=== PATIENT | male | born 1950 | race African-American/Black ===

== ENCOUNTER 2021-03-12 14:35 | Inpatient (IN) | payer MEDICARE, MEDICAID, OTHER ==
[~2021-03-12] VITALS: Ht 185.4 cm; Wt 74.4 kg
[2021-03-12] MEDS ORDERED: FOLIC ACID 1 MG, THIAMINE HCL 100 MG, MVI, ADULT NO.1 10 ML in DEXTROSE 5% WATER 1,000 ML IV ONE (15:00)
[2021-03-12] MEDS ORDERED: CHLORDIAZEPOXIDE 25MG CAPSULE PO ONE (15:00)
[2021-03-12] MEDS ORDERED: CHLORDIAZEPOXIDE 10MG CAPSULE PO NR (15:30)
[2021-03-12 15:48] LABS: BASOPHILS % 0.6 % (0.0-2.0); EOSINOPHILS % 0.8 % (0.0-5.0); HEMATOCRIT. 35.8 % (42.0-52.0); HEMOGLOBIN. 12.2 g/dL (14.0-18.0); LYMPHOCYTES % 11.7 % (20.0-50.0); MEAN CORPUSCULAR HEMOGLOBIN 33.1 pg (28.0-32.0); MEAN CORPUSCULAR VOLUME 96.6 fL (80.0-94.0); MEAN PLATELET VOLUME 8.1 fl (7.4-10.4); MONOCYTES % 6.8 % (2.0-8.0); NEUTROPHILS % 80.1 % (40.0-76.0); PLATELET 243 x1000/uL (130-400); RED CELL DISTRIBUTION WIDTH 15.3 % (11.6-14.6)
[2021-03-12 15:54] LABS: CHLORIDE 101 mEq/L (98-107); PROTHROMBIN TIME 10.7 sec (9.6-11.0)
[2021-03-12 15:57] LABS: ETHANOL BLOOD < 10 mg/dL
[2021-03-12] MEDS ORDERED: POTASSIUM CHLORIDE 20MEQ TABLET SR PO ONE (17:30)
[2021-03-12] MEDS ORDERED: AMLODIPINE 2.5MG TABLET PO ONE (18:00)
[2021-03-12] MEDS: HYDRALAZINE 20MG/ML VIAL IV PRN (20:29)
[2021-03-12 21:25] LABS: CLARITY URINE CLEAR (CLEAR); COLOR URINE DARK YELLOW (YELLOW); KETONES URINE 2+ (NEGATIVE); LEUKOCYTE ESTERASE URINE TRACE (NEGATIVE); NITRITE URINE NEGATIVE (NEGATIVE); OCCULT BLOOD URINE NEGATIVE (NEGATIVE); PROTEIN URINE 1+ (NEGATIVE); SPECIFIC GRAVITY URINE 1.021 (1.005-1.030)
[2021-03-12 21:30] VITALS: BP 151/97
[2021-03-12 21:34] LABS: *AMPHETAMINES SCREEN URINE NEGATIVE (NEGATIVE); *BARBITURATES SCREEN URINE NEGATIVE (NEGATIVE); *BENZODIAZEPINES SCREEN URINE NEGATIVE (NEGATIVE); *COCAINE SCREEN URINE NEGATIVE (NEGATIVE); METHADONE URINE SCREEN NEGATIVE (NEGATIVE); OPIATES URINE SCREEN NEGATIVE (NEGATIVE); PHENCYCLIDINE URINE SCREEN NEGATIVE (NEGATIVE)
[2021-03-12 21:35] LABS: CANNABINOID URINE SCREEN NEGATIVE (NEGATIVE)
[2021-03-13] VITALS: BP 132/95
[2021-03-13] MEDS ORDERED: LORAZEPAM 2MG/ML CPJ IV PRN (00:15)
[2021-03-13] MEDS ORDERED: ONDANSETRON HCL 4MG/2ML INJ IV PRN (00:15)
[2021-03-13] MEDS ORDERED: DIPHENHYDRAMINE 50MG/ML VIAL IV PRN (00:15)
[2021-03-13] MEDS: SODIUM CHL 0.45% + KCL 20MEQ/L 1,000 ML IV SCH ×3 (03:07→21:43)
[2021-03-13 05:42] LABS: BASOPHILS % 0.3 % (0.0-2.0); EOSINOPHILS % 2.4 % (0.0-5.0); HEMATOCRIT. 32.4 % (42.0-52.0); HEMOGLOBIN. 10.8 g/dL (14.0-18.0); LYMPHOCYTES % 26.8 % (20.0-50.0); MEAN CORPUSCULAR HEMOGLOBIN 32.4 pg (28.0-32.0); MEAN CORPUSCULAR VOLUME 97.2 fL (80.0-94.0); MEAN PLATELET VOLUME 7.9 fl (7.4-10.4); MONOCYTES % 8.2 % (2.0-8.0); NEUTROPHILS % 62.3 % (40.0-76.0); PLATELET 197 x1000/uL (130-400); RED BLOOD CELL COUNT 3.34 mill/uL (4.7-6.1); RED CELL DISTRIBUTION WIDTH 14.8 % (11.6-14.6)
[2021-03-13 06:00] LABS: CHLORIDE 101 mEq/L (98-107)
[2021-03-13] MEDS ORDERED: CHLORDIAZEPOXIDE 25MG CAPSULE PO SCH (06:00)
[2021-03-13 06:27] VITALS: BP 151/100
[2021-03-13 08:00] VITALS: BP 170/108
[2021-03-13] MEDS: HYDRALAZINE 20MG/ML VIAL IV PRN (08:47)
[2021-03-13] MEDS: POTASSIUM CHLORIDE 20MEQ TABLET SR PO SCH ×3 (11:43→15:00)
[2021-03-13] MEDS: CLONIDINE 0.1MG TABLET PO PRN (11:45)
[2021-03-13 12:00] VITALS: BP 175/106
[2021-03-13] MEDS ORDERED: MAGNESIUM 4 G PREMIX 100 ML IV NR (12:00)
[2021-03-13] MEDS ORDERED: PNEUMOCOCCAL 23-VAL P-SAC VAC 0.5 ML IM ONE (12:00)
[2021-03-13] MEDS ORDERED: CHLORDIAZEPOXIDE 10MG CAPSULE PO SCH (14:19)
[2021-03-13] MEDS: CHLORDIAZEPOXIDE 10MG CAPSULE PO SCH ×2 (14:27→21:44)
[2021-03-13 16:00] VITALS: BP 126/87
[2021-03-13 20:00] VITALS: BP 161/108
[2021-03-13] MEDS: AMLODIPINE 5MG TABLET PO SCH (21:43)
[2021-03-14] VITALS (7 sets, daily range): BP systolic 142–170; BP diastolic 96–110
[2021-03-14 06:10] LABS: CHLORIDE 105 mEq/L (98-107)
[2021-03-14] MEDS: SODIUM CHL 0.45% + KCL 20MEQ/L 1,000 ML IV SCH ×3 (06:10→20:36)
[2021-03-14] MEDS: CHLORDIAZEPOXIDE 10MG CAPSULE PO SCH (06:10)
[2021-03-14 06:22] LABS: PHOSPHORUS 1.6 mg/dL (2.5-4.9)
[2021-03-14] MEDS: AMLODIPINE 5MG TABLET PO SCH ×2 (09:21→21:09)
[2021-03-14] MEDS ORDERED: POTASSIUM PHOS,M-BASIC-D-BASIC 20 MMOL in DEXT 5% WATER 243.3333 ML IV SCH (10:00)
[2021-03-14] MEDS: CLONIDINE 0.1MG TABLET PO PRN (15:20)
[2021-03-14] MEDS: LOSARTAN POTASSIUM 50 MG TABLET PO SCH ×2 (15:20→21:10)
[2021-03-14] MEDS: CHLORDIAZEPOXIDE 5 MG CAPSULE PO SCH ×2 (15:21→21:09)
[2021-03-14] MEDS ORDERED: CLONIDINE 0.1MG TABLET PO PRN (21:00)
[2021-03-14] MEDS: HYDRALAZINE 20MG/ML VIAL IV PRN (21:11)
[2021-03-15] VITALS: BP 127/93
[2021-03-15 04:00] VITALS: BP 148/105
[2021-03-15 05:51] LABS: CHLORIDE 110 mEq/L (98-107)
[2021-03-15 05:56] LABS: PHOSPHORUS 2.6 mg/dL (2.5-4.9)
[2021-03-15] MEDS: CHLORDIAZEPOXIDE 5 MG CAPSULE PO SCH ×4 (06:00→20:49)
[2021-03-15 08:00] VITALS: BP 116/114
[2021-03-15] MEDS: AMLODIPINE 5MG TABLET PO SCH ×2 (09:11→20:48)
[2021-03-15] MEDS: LOSARTAN POTASSIUM 50 MG TABLET PO SCH ×2 (09:11→20:48)
[2021-03-15] MEDS: SODIUM CHL 0.45% + KCL 20MEQ/L 1,000 ML IV SCH ×2 (09:12→23:56)
[2021-03-15 12:00] VITALS: BP 169/97
[2021-03-15] MEDS ORDERED: MAGNESIUM 4 G PREMIX 100 ML IV NR (12:30)
[2021-03-15] MEDS: HYDRALAZINE 20MG/ML VIAL IV PRN (12:34)
[2021-03-15 16:00] VITALS: BP 130/80
[2021-03-15 20:00] VITALS: BP 149/96
[2021-03-16] VITALS: BP 154/101
[2021-03-16 04:00] VITALS: BP 161/102
[2021-03-16] MEDS: HYDRALAZINE 20MG/ML VIAL IV PRN (05:49)
[2021-03-16 08:05] VITALS: BP 128/88
[2021-03-16] MEDS: LOSARTAN POTASSIUM 50 MG TABLET PO SCH (09:00)
[2021-03-16] MEDS: AMLODIPINE 5MG TABLET PO SCH (09:00)
[2021-03-16] MEDS: DEXT 5%/0.45% NACL KCL 20MEQ/L 1,000 ML IV SCH ×2 (11:33→21:37)
[2021-03-16 12:16] VITALS: BP 155/105
[2021-03-16 16:12] VITALS: BP 141/100
[2021-03-16 18:12] LABS: T4 FREE 1.14 ng/dL (0.76-1.46)
[2021-03-16 18:33] LABS: VITAMIN B12 SERUM 1003 pg/mL (211-911)
[2021-03-16 20:00] VITALS: BP 144/103
[2021-03-16] MEDS ORDERED: THIAMINE HCL 100 MG in SODIUM CHLORIDE 0.9% 49 ML IV NR (23:30)
[2021-03-17] VITALS: BP 144/91
[2021-03-17 04:00] VITALS: BP 163/97
[2021-03-17 08:00] VITALS: BP 133/78
[2021-03-17 08:13] LABS: CREATINE KINASE 58 IU/L (39-308)
[2021-03-17] MEDS: DEXT 5%/0.45% NACL KCL 20MEQ/L 1,000 ML IV SCH (11:13)
[2021-03-17 12:00] VITALS: BP 155/99
[2021-03-17 16:00] VITALS: BP 157/101
[2021-03-17 20:00] VITALS: BP 156/104
[2021-03-18] VITALS: BP 174/107
[2021-03-18] MEDS: HYDRALAZINE 20MG/ML VIAL IV PRN (00:21)
[2021-03-18] MEDS: DEXT 5%/0.45% NACL KCL 20MEQ/L 1,000 ML IV SCH ×2 (03:05→13:28)
[2021-03-18 04:00] VITALS: BP 108/77
[2021-03-18 07:56] VITALS: BP 141/98
[2021-03-18] MEDS: THIAMINE HCL 100MG TABLET PO SCH (10:01)
[2021-03-18 11:39] VITALS: BP 135/95
[2021-03-18 15:46] VITALS: BP 120/78
[2021-03-18 20:00] VITALS: BP 129/90
[2021-03-19] VITALS: BP 144/91
[2021-03-19 04:00] VITALS: BP 165/108
[2021-03-19] MEDS: HYDRALAZINE 20MG/ML VIAL IV PRN ×2 (04:38→20:11)
[2021-03-19 08:06] VITALS: BP 153/95
[2021-03-19] MEDS: THIAMINE HCL 100MG TABLET PO SCH (09:00)
[2021-03-19] MEDS: DEXT 5%/0.45% NACL KCL 20MEQ/L 1,000 ML IV SCH ×2 (09:20→20:10)
[2021-03-19] MEDS ORDERED: LORAZEPAM 2MG/ML CPJ IV PRN (10:30)
[2021-03-19 12:12] VITALS: BP 137/96
[2021-03-19 15:48] VITALS: BP 146/87
[2021-03-19 20:00] VITALS: BP 166/105
[2021-03-20] VITALS: BP 129/90
[2021-03-20 04:00] VITALS: BP 147/85
[2021-03-20] MEDS: DEXT 5%/0.45% NACL KCL 20MEQ/L 1,000 ML IV SCH ×2 (04:36→14:44)
[2021-03-20 08:00] VITALS: BP 150/100
[2021-03-20] MEDS: THIAMINE HCL 100MG TABLET PO SCH (09:00)
[2021-03-20 11:14] LABS: BASOPHILS % 0.4 % (0.0-2.0); EOSINOPHILS % 1.2 % (0.0-5.0); HEMATOCRIT. 32.8 % (42.0-52.0); HEMOGLOBIN. 10.8 g/dL (14.0-18.0); LYMPHOCYTES % 9.1 % (20.0-50.0); MEAN CORPUSCULAR VOLUME 96.8 fL (80.0-94.0); MEAN PLATELET VOLUME 7.2 fl (7.4-10.4); MONOCYTES % 3.8 % (2.0-8.0); NEUTROPHILS % 85.5 % (40.0-76.0); PLATELET 279 x1000/uL (130-400); RED BLOOD CELL COUNT 3.38 mill/uL (4.7-6.1); RED CELL DISTRIBUTION WIDTH 14.9 % (11.6-14.6)
[2021-03-20 11:20] LABS: INR 1.2; PROTHROMBIN TIME 12.4 sec (9.6-11.0)
[2021-03-20 11:22] LABS: CHLORIDE 114 mEq/L (98-107)
[2021-03-20 11:28] LABS: PHOSPHORUS 3.2 mg/dL (2.5-4.9)
[2021-03-20 12:00] VITALS: BP 150/100
[2021-03-20 16:00] VITALS: BP 137/95
[2021-03-20 20:43] VITALS: BP 137/88
[2021-03-21 00:28] VITALS: BP 142/80
[2021-03-21] MEDS: IPRATROPIUM/ALBUTEROL 0.5-3(2.5)MG/3ML NEB HHN SCH ×4 (01:15→21:51)
[2021-03-21 04:00] VITALS: BP 166/99
[2021-03-21] MEDS: HYDRALAZINE 20MG/ML VIAL IV PRN (04:21)
[2021-03-21] MEDS: DEXT 5%/0.45% NACL KCL 20MEQ/L 1,000 ML IV SCH ×3 (06:49→15:49)
[2021-03-21 08:00] VITALS: BP 133/75
[2021-03-21] MEDS: THIAMINE HCL 100MG TABLET PO SCH (08:55)
[2021-03-21] MEDS ORDERED: FUROSEMIDE 40MG/4ML VIAL IVP NR (11:15)
[2021-03-21 12:00] VITALS: BP 130/90
[2021-03-21 16:00] VITALS: BP 129/82
[2021-03-21 20:33] VITALS: BP 135/72
[2021-03-22] VITALS (7 sets, daily range): BP systolic 99–154; BP diastolic 66–95
[2021-03-22] MEDS: IPRATROPIUM/ALBUTEROL 0.5-3(2.5)MG/3ML NEB HHN SCH ×4 (01:04→20:37)
[2021-03-22] MEDS: THIAMINE HCL 100MG TABLET PO SCH (09:00)
[2021-03-22 13:38] LABS: INR 1.2; PARTIAL THROMBOPLASTIN TIME 42.4 sec (23.4-31.0); PROTHROMBIN TIME 12.9 sec (9.6-11.0)
[2021-03-22 13:43] LABS: CHLORIDE 110 mEq/L (98-107)
[2021-03-22] MEDS: DEXT 5%/0.45% NACL KCL 20MEQ/L 1,000 ML IV SCH (13:43)
[2021-03-22] MEDS ORDERED: CYAN50003 PO (15:53)
[2021-03-22] MEDS ORDERED: AMLO5TAB4 PO (15:53)
[2021-03-22] MEDS ORDERED: DIVA500T3 PO ×2 (15:53)
[2021-03-22] MEDS ORDERED: ASPI-1079 PO (15:53)
[2021-03-22] MEDS ORDERED: CLOP75TA4 PO (15:53)
[2021-03-22] MEDS ORDERED: QUET300T19 PO (15:53)
[2021-03-22] MEDS ORDERED: LEVO75TA7 PO (15:53)
[2021-03-22] MEDS ORDERED: ATOR40TA70 PO (15:53)
[2021-03-23] VITALS (62 sets, daily range): BP systolic 61–147; BP diastolic 35–104
[2021-03-23] MEDS: IPRATROPIUM/ALBUTEROL 0.5-3(2.5)MG/3ML NEB HHN SCH ×3 (02:08→20:22)
[2021-03-23 06:26] LABS: CHLORIDE 109 mEq/L (98-107)
[2021-03-23 06:47] LABS: BASOPHILS % 0.2 % (0.0-2.0); EOSINOPHILS % 0.3 % (0.0-5.0); HEMATOCRIT. 35.4 % (42.0-52.0); LYMPHOCYTES % 8.7 % (20.0-50.0); MEAN CORPUSCULAR HEMOGLOBIN 30.8 pg (28.0-32.0); MEAN CORPUSCULAR VOLUME 99.4 fL (80.0-94.0); MEAN PLATELET VOLUME 7.6 fl (7.4-10.4); MONOCYTES % 2.7 % (2.0-8.0); NEUTROPHILS % 88.1 % (40.0-76.0); PLATELET 261 x1000/uL (130-400); RED BLOOD CELL COUNT 3.57 mill/uL (4.7-6.1); RED CELL DISTRIBUTION WIDTH 15.8 % (11.6-14.6)
[2021-03-23 06:48] LABS: PHOSPHORUS 8.6 mg/dL (2.5-4.9)
[2021-03-23] MEDS ORDERED: VECURONIUM BROMIDE 10 MG/VIAL IV ONE (07:38)
[2021-03-23] MEDS ORDERED: PHENYLEPHRINE 100 MG in DEXT 5% WATER 240 ML IV PRN (08:30)
[2021-03-23] MEDS: NOREPINEPHRINE 8 MG in DEXT 5% WATER 242 ML IV PRN ×2 (08:30→14:02)
[2021-03-23] MEDS ORDERED: FENTANYL CITRATE/PF 2,500 MCG in SODIUM CHLORIDE 0.9% 200 ML IV PRN (08:30)
[2021-03-23 09:17] LABS: BG BASE EXCESS -10.6 mmol/L (-2.0-2.0); BG CARBOXYHEMOGLOBIN 0.3 % (0.5-1.5); BG DEOXYHEMOGLOBIN 0.5 % (0.0-5.0); BG FRACTION INSPIRED OXYGEN 100; BG HCO3 ACT 18.4 mmol/L (22.0-26.0); BG METHEMOGLOBIN 0.5 % (0.0-1.5); BG OXYGEN SATURATION 99.5 % (92.0-98.5); BG OXYHEMOGLOBIN 98.7 % (94.0-97.0); BG PCO2 55.1 mmHg (35.0-45.0); BG PH 7.141 (7.350-7.450); BG PO2 282.1 mmHg (75.0-100.0); BG SAMPLE SITE LEFT RADIAL; BG TOTAL HEMOGLOBIN 10.9 g/dL (12.0-18.0); BG VENT MODE VENT - AC
[2021-03-23] MEDS ORDERED: SODIUM BICARBONATE 8.4% 1 MEQ/ML 50ML SYR IV NR (09:30)
[2021-03-23] MEDS ORDERED: MAGNESIUM 2 G PREMIX 50 ML IV ONE (10:00)
[2021-03-23] MEDS: THIAMINE HCL 100MG TABLET PO SCH (10:23)
[2021-03-23] MEDS: PIPERACILLIN/TAZOBACTAM 3.375 G in DEXTROSE 5% WATER 50 ML IV SCH ×3 (10:23→21:31)
[2021-03-23] MEDS ORDERED: VANCOMYCIN 1250MG in DEXTROSE 5% WATER 250ML IV NR (11:00)
[2021-03-23] MEDS ORDERED: MAGNESIUM 2 G PREMIX 50 ML IV NR (12:00)
[2021-03-23] MEDS: ACETYLCYSTEINE 100MG/ML 10% VIAL 4ML INH SCH (13:53)
[2021-03-23] MEDS ORDERED: IOHEXOL-300 100 ML BOTTLE ONE (14:48)
[2021-03-23 15:36] LABS: BG BASE EXCESS -8.6 mmol/L (-2.0-2.0); BG CARBOXYHEMOGLOBIN 0.3 % (0.5-1.5); BG DEOXYHEMOGLOBIN 3.3 % (0.0-5.0); BG FRACTION INSPIRED OXYGEN 70; BG HCO3 ACT 15.8 mmol/L (22.0-26.0); BG METHEMOGLOBIN 0.3 % (0.0-1.5); BG OXYGEN SATURATION 96.7 % (92.0-98.5); BG OXYHEMOGLOBIN 96.1 % (94.0-97.0); BG PCO2 29.5 mmHg (35.0-45.0); BG PH 7.348 (7.350-7.450); BG PO2 85.3 mmHg (75.0-100.0); BG SAMPLE SITE RIGHT BRACHIAL; BG TOTAL HEMOGLOBIN 11.6 g/dL (12.0-18.0); BG VENT MODE VENT - AC
[2021-03-23] MEDS: DEXT 5%/0.45% NACL KCL 20MEQ/L 1,000 ML IV SCH (19:22)
[2021-03-23] MEDS ORDERED: NOREPINEPHRINE 32 MG in DEXT 5% WATER 218 ML IV PRN (20:15)
[2021-03-23] MEDS: VANCOMYCIN 1 G PREMIX 200 ML IV SCH (21:26)
[2021-03-24] VITALS (84 sets, daily range): BP systolic 78–154; BP diastolic 29–116
[2021-03-24] MEDS: IPRATROPIUM/ALBUTEROL 0.5-3(2.5)MG/3ML NEB HHN SCH ×4 (02:08→20:32)
[2021-03-24] MEDS: PIPERACILLIN/TAZOBACTAM 3.375 G in DEXTROSE 5% WATER 50 ML IV SCH ×2 (04:27→09:14)
[2021-03-24 06:01] LABS: CHLORIDE 104 mEq/L (98-107)
[2021-03-24 06:03] LABS: HEMATOCRIT. 32.5 % (42.0-52.0); HEMOGLOBIN. 10.5 g/dL (14.0-18.0); MEAN CORPUSCULAR HEMOGLOBIN 30.5 pg (28.0-32.0); MEAN CORPUSCULAR VOLUME 94.9 fL (80.0-94.0); MEAN PLATELET VOLUME 7.7 fl (7.4-10.4); PLATELET 159 x1000/uL (130-400); RED BLOOD CELL COUNT 3.43 mill/uL (4.7-6.1); RED CELL DISTRIBUTION WIDTH 15.5 % (11.6-14.6)
[2021-03-24 06:12] LABS: PHOSPHORUS 4.3 mg/dL (2.5-4.9)
[2021-03-24] MEDS: ACETYLCYSTEINE 100MG/ML 10% VIAL 4ML INH SCH (07:54)
[2021-03-24 08:48] LABS: BG BASE EXCESS -3.2 mmol/L (-2.0-2.0); BG CARBOXYHEMOGLOBIN 0.2 % (0.5-1.5); BG DEOXYHEMOGLOBIN 1.1 % (0.0-5.0); BG FRACTION INSPIRED OXYGEN 70; BG HCO3 ACT 19.1 mmol/L (22.0-26.0); BG METHEMOGLOBIN 0.2 % (0.0-1.5); BG OXYGEN SATURATION 98.9 % (92.0-98.5); BG OXYHEMOGLOBIN 98.5 % (94.0-97.0); BG PCO2 26.1 mmHg (35.0-45.0); BG PH 7.482 (7.350-7.450); BG PO2 163.1 mmHg (75.0-100.0); BG SAMPLE SITE LEFT RADIAL; BG TOTAL HEMOGLOBIN 10.9 g/dL (12.0-18.0); BG VENT MODE VENT - AC
[2021-03-24] MEDS: THIAMINE HCL 100MG TABLET PO SCH (09:23)
[2021-03-24] MEDS: DEXT 5%/0.9% NACL 1,000 ML IV SCH (09:23)
[2021-03-24] MEDS: VANCOMYCIN 1 G PREMIX 200 ML IV SCH (09:23)
[2021-03-24] MEDS ORDERED: MAGNESIUM 2 G PREMIX 50 ML IV SCH (11:00)
[2021-03-24 11:59] LABS: PLATELET ESTIMATE NORMAL
[2021-03-24] MEDS: CEFEPIME 1,000 MG in DEXTROSE 5% WATER 50 ML IV SCH (16:02)
[2021-03-24] MEDS: METRONIDAZOLE 500MG TABLET PO SCH (20:15)
[2021-03-25] VITALS (45 sets, daily range): BP systolic 108–146; BP diastolic 68–100
[2021-03-25] MEDS: IPRATROPIUM/ALBUTEROL 0.5-3(2.5)MG/3ML NEB HHN SCH ×3 (02:00→20:18)
[2021-03-25] MEDS: CEFEPIME 1,000 MG in DEXTROSE 5% WATER 50 ML IV SCH ×2 (04:15→15:17)
[2021-03-25] MEDS: DEXT 5%/0.9% NACL 1,000 ML IV SCH (04:15)
[2021-03-25 05:36] LABS: BASOPHILS % 0.3 % (0.0-2.0); EOSINOPHILS % 0.1 % (0.0-5.0); HEMATOCRIT. 27.6 % (42.0-52.0); LYMPHOCYTES % 7.6 % (20.0-50.0); MEAN CORPUSCULAR HEMOGLOBIN 30.7 pg (28.0-32.0); MEAN CORPUSCULAR VOLUME 94.4 fL (80.0-94.0); MEAN PLATELET VOLUME 7.5 fl (7.4-10.4); MONOCYTES % 2.7 % (2.0-8.0); NEUTROPHILS % 89.3 % (40.0-76.0); PLATELET 100 x1000/uL (130-400); RED BLOOD CELL COUNT 2.93 mill/uL (4.7-6.1); RED CELL DISTRIBUTION WIDTH 15.1 % (11.6-14.6)
[2021-03-25 05:42] LABS: CHLORIDE 108 mEq/L (98-107)
[2021-03-25 05:48] LABS: PHOSPHORUS 5.2 mg/dL (2.5-4.9)
[2021-03-25] MEDS: ACETYLCYSTEINE 100MG/ML 10% VIAL 4ML INH SCH ×2 (08:54→20:18)
[2021-03-25] MEDS: METRONIDAZOLE 500MG TABLET PO SCH ×2 (08:58→20:31)
[2021-03-25] MEDS: THIAMINE HCL 100MG TABLET PO SCH (08:58)
[2021-03-25 09:21] LABS: BG BASE EXCESS -4.5 mmol/L (-2.0-2.0); BG CARBOXYHEMOGLOBIN 0.3 % (0.5-1.5); BG DEOXYHEMOGLOBIN 1.3 % (0.0-5.0); BG FRACTION INSPIRED OXYGEN 50; BG HCO3 ACT 18.8 mmol/L (22.0-26.0); BG METHEMOGLOBIN 0.2 % (0.0-1.5); BG OXYGEN SATURATION 98.7 % (92.0-98.5); BG OXYHEMOGLOBIN 98.2 % (94.0-97.0); BG PCO2 28.8 mmHg (35.0-45.0); BG PH 7.433 (7.350-7.450); BG SAMPLE SITE RIGHT RADIAL; BG TOTAL HEMOGLOBIN 9.9 g/dL (12.0-18.0); BG VENT MODE VENT - AC
[2021-03-25] MEDS: ENOXAPARIN 40MG/0.4ML SYR SUBCUT SCH ×2 (11:00→11:11)
[2021-03-25] MEDS: SODIUM CHLORIDE 0.9% 1,000 ML IV SCH (11:11)
[2021-03-25] MEDS ORDERED: VANCOMYCIN 500 MG PREMIX 100 ML IV SCH (21:00)
[2021-03-26] VITALS (46 sets, daily range): BP systolic 129–165; BP diastolic 78–122
[2021-03-26] MEDS: IPRATROPIUM/ALBUTEROL 0.5-3(2.5)MG/3ML NEB HHN SCH ×4 (01:43→20:04)
[2021-03-26 05:24] LABS: BASOPHILS % 0.4 % (0.0-2.0); EOSINOPHILS % 0.6 % (0.0-5.0); HEMATOCRIT. 27.4 % (42.0-52.0); LYMPHOCYTES % 10.6 % (20.0-50.0); MEAN CORPUSCULAR HEMOGLOBIN 30.7 pg (28.0-32.0); MEAN CORPUSCULAR VOLUME 93.8 fL (80.0-94.0); MEAN PLATELET VOLUME 7.3 fl (7.4-10.4); MONOCYTES % 3.5 % (2.0-8.0); NEUTROPHILS % 84.9 % (40.0-76.0); PLATELET 82 x1000/uL (130-400); RED BLOOD CELL COUNT 2.92 mill/uL (4.7-6.1); RED CELL DISTRIBUTION WIDTH 15.4 % (11.6-14.6)
[2021-03-26 05:27] LABS: CHLORIDE 110 mEq/L (98-107)
[2021-03-26 05:33] LABS: PHOSPHORUS 5.2 mg/dL (2.5-4.9)
[2021-03-26] MEDS: CEFEPIME 1,000 MG in DEXTROSE 5% WATER 50 ML IV SCH ×2 (05:52→15:07)
[2021-03-26] MEDS: SODIUM CHLORIDE 0.9% 1,000 ML IV SCH (07:39)
[2021-03-26] MEDS: ACETYLCYSTEINE 100MG/ML 10% VIAL 4ML INH SCH ×2 (08:39→20:04)
[2021-03-26] MEDS: ENOXAPARIN 40MG/0.4ML SYR SUBCUT SCH (09:00)
[2021-03-26 09:05] LABS: BG BASE EXCESS -3.1 mmol/L (-2.0-2.0); BG CARBOXYHEMOGLOBIN 0.3 % (0.5-1.5); BG DEOXYHEMOGLOBIN 1.8 % (0.0-5.0); BG FRACTION INSPIRED OXYGEN 30; BG HCO3 ACT 19.6 mmol/L (22.0-26.0); BG METHEMOGLOBIN 0.1 % (0.0-1.5); BG OXYGEN SATURATION 98.2 % (92.0-98.5); BG OXYHEMOGLOBIN 97.8 % (94.0-97.0); BG PCO2 27.3 mmHg (35.0-45.0); BG PH 7.475 (7.350-7.450); BG PO2 113.1 mmHg (75.0-100.0); BG SAMPLE SITE RIGHT RADIAL; BG TOTAL HEMOGLOBIN 9.3 g/dL (12.0-18.0); BG VENT MODE VENT - AC
[2021-03-26] MEDS: THIAMINE HCL 100MG TABLET PO SCH (09:52)
[2021-03-26] MEDS: METRONIDAZOLE 500MG TABLET PO SCH ×2 (09:53→20:05)
[2021-03-26 12:14] LABS: BG BASE EXCESS -2.7 mmol/L (-2.0-2.0); BG CARBOXYHEMOGLOBIN 0.3 % (0.5-1.5); BG DEOXYHEMOGLOBIN 3.4 % (0.0-5.0); BG FRACTION INSPIRED OXYGEN 30; BG METHEMOGLOBIN 0.3 % (0.0-1.5); BG OXYGEN SATURATION 96.6 % (92.0-98.5); BG PCO2 32.3 mmHg (35.0-45.0); BG PH 7.431 (7.350-7.450); BG PO2 94.2 mmHg (75.0-100.0); BG SAMPLE SITE RIGHT RADIAL; BG TOTAL HEMOGLOBIN 9.6 g/dL (12.0-18.0); BG VENT MODE VENT - CPAP
[2021-03-27] VITALS (47 sets, daily range): BP systolic 118–173; BP diastolic 68–117
[2021-03-27] MEDS: IPRATROPIUM/ALBUTEROL 0.5-3(2.5)MG/3ML NEB HHN SCH ×4 (01:58→20:38)
[2021-03-27] MEDS: SODIUM CHLORIDE 0.9% 1,000 ML IV SCH ×2 (02:12→21:36)
[2021-03-27] MEDS: HYDRALAZINE 20MG/ML VIAL IV PRN (02:18)
[2021-03-27] MEDS: CEFEPIME 1,000 MG in DEXTROSE 5% WATER 50 ML IV SCH ×2 (03:21→18:01)
[2021-03-27 05:35] LABS: CHLORIDE 112 mEq/L (98-107)
[2021-03-27 05:36] LABS: HEMATOCRIT. 26.9 % (42.0-52.0); HEMOGLOBIN. 8.7 g/dL (14.0-18.0); MEAN CORPUSCULAR HEMOGLOBIN 30.5 pg (28.0-32.0); MEAN CORPUSCULAR VOLUME 93.7 fL (80.0-94.0); MEAN PLATELET VOLUME 7.3 fl (7.4-10.4); PLATELET 73 x1000/uL (130-400); RED BLOOD CELL COUNT 2.87 mill/uL (4.7-6.1); RED CELL DISTRIBUTION WIDTH 15.4 % (11.6-14.6)
[2021-03-27 05:41] LABS: PHOSPHORUS 4.4 mg/dL (2.5-4.9)
[2021-03-27] MEDS: ACETYLCYSTEINE 100MG/ML 10% VIAL 4ML INH SCH ×2 (08:10→14:10)
[2021-03-27] MEDS: METRONIDAZOLE 500MG TABLET PO SCH ×2 (09:39→21:35)
[2021-03-27] MEDS: THIAMINE HCL 100MG TABLET PO SCH (09:39)
[2021-03-27 10:07] LABS: BG BASE EXCESS -2.9 mmol/L (-2.0-2.0); BG CARBOXYHEMOGLOBIN 0.1 % (0.5-1.5); BG DEOXYHEMOGLOBIN 1.8 % (0.0-5.0); BG FRACTION INSPIRED OXYGEN 30; BG HCO3 ACT 20.5 mmol/L (22.0-26.0); BG METHEMOGLOBIN 0.3 % (0.0-1.5); BG OXYGEN SATURATION 98.2 % (92.0-98.5); BG OXYHEMOGLOBIN 97.8 % (94.0-97.0); BG PH 7.452 (7.350-7.450); BG PO2 109.4 mmHg (75.0-100.0); BG SAMPLE SITE RIGHT RADIAL; BG TOTAL HEMOGLOBIN 8.9 g/dL (12.0-18.0); BG VENT MODE VENT - SIMV
[2021-03-27 14:24] LABS: PLATELET ESTIMATE DECREASED
[2021-03-28] VITALS (49 sets, daily range): BP systolic 136–174; BP diastolic 79–120
[2021-03-28] MEDS: CEFEPIME 1,000 MG in DEXTROSE 5% WATER 50 ML IV SCH ×2 (03:13→15:18)
[2021-03-28] MEDS: IPRATROPIUM/ALBUTEROL 0.5-3(2.5)MG/3ML NEB HHN SCH ×4 (03:40→19:58)
[2021-03-28] MEDS: HYDRALAZINE 20MG/ML VIAL IV PRN ×2 (05:56→22:17)
[2021-03-28 07:30] LABS: CHLORIDE 113 mEq/L (98-107)
[2021-03-28 07:50] LABS: HEMATOCRIT. 26.2 % (42.0-52.0); HEMOGLOBIN. 8.6 g/dL (14.0-18.0); MEAN CORPUSCULAR VOLUME 93.8 fL (80.0-94.0); MEAN PLATELET VOLUME 7.9 fl (7.4-10.4); PLATELET 79 x1000/uL (130-400); RED BLOOD CELL COUNT 2.79 mill/uL (4.7-6.1); RED CELL DISTRIBUTION WIDTH 15.4 % (11.6-14.6)
[2021-03-28] MEDS: ACETYLCYSTEINE 100MG/ML 10% VIAL 4ML INH SCH (08:06)
[2021-03-28 09:00] LABS: BG BASE EXCESS -2.2 mmol/L (-2.0-2.0); BG CARBOXYHEMOGLOBIN 0.3 % (0.5-1.5); BG FRACTION INSPIRED OXYGEN 30; BG METHEMOGLOBIN 0.2 % (0.0-1.5); BG OXYHEMOGLOBIN 97.5 % (94.0-97.0); BG PCO2 35.9 mmHg (35.0-45.0); BG PH 7.406 (7.350-7.450); BG PO2 118.7 mmHg (75.0-100.0); BG SAMPLE SITE RIGHT RADIAL; BG TOTAL HEMOGLOBIN 10.3 g/dL (12.0-18.0); BG VENT MODE VENT - SIMV
[2021-03-28] MEDS: THIAMINE HCL 100MG TABLET PO SCH (09:47)
[2021-03-28] MEDS: METRONIDAZOLE 500MG TABLET PO SCH ×2 (09:48→20:14)
[2021-03-28 15:03] LABS: PLATELET ESTIMATE DECREASED
[2021-03-29] VITALS (48 sets, daily range): BP systolic 120–170; BP diastolic 60–102
[2021-03-29] MEDS: IPRATROPIUM/ALBUTEROL 0.5-3(2.5)MG/3ML NEB HHN SCH ×4 (02:01→20:52)
[2021-03-29] MEDS: CEFEPIME 1,000 MG in DEXTROSE 5% WATER 50 ML IV SCH (03:30)
[2021-03-29 05:39] LABS: CHLORIDE 114 mEq/L (98-107)
[2021-03-29 05:42] LABS: HEMATOCRIT. 26.1 % (42.0-52.0); HEMOGLOBIN. 8.5 g/dL (14.0-18.0); MEAN CORPUSCULAR HEMOGLOBIN 30.5 pg (28.0-32.0); MEAN CORPUSCULAR VOLUME 94.1 fL (80.0-94.0); MEAN PLATELET VOLUME 8.2 fl (7.4-10.4); PLATELET 78 x1000/uL (130-400); RED BLOOD CELL COUNT 2.78 mill/uL (4.7-6.1); RED CELL DISTRIBUTION WIDTH 15.3 % (11.6-14.6)
[2021-03-29 05:44] LABS: PHOSPHORUS 3.8 mg/dL (2.5-4.9)
[2021-03-29] MEDS: HYDRALAZINE 20MG/ML VIAL IV PRN (05:47)
[2021-03-29] MEDS: METRONIDAZOLE 500MG TABLET PO SCH (08:42)
[2021-03-29] MEDS: THIAMINE HCL 100MG TABLET PO SCH (08:42)
[2021-03-29 09:02] LABS: BG CARBOXYHEMOGLOBIN 0.3 % (0.5-1.5); BG DEOXYHEMOGLOBIN 2.6 % (0.0-5.0); BG FRACTION INSPIRED OXYGEN 30; BG HCO3 ACT 22.5 mmol/L (22.0-26.0); BG METHEMOGLOBIN 0.1 % (0.0-1.5); BG OXYGEN SATURATION 97.4 % (92.0-98.5); BG PCO2 36.9 mmHg (35.0-45.0); BG PH 7.403 (7.350-7.450); BG PO2 102.3 mmHg (75.0-100.0); BG SAMPLE SITE RIGHT RADIAL; BG TOTAL HEMOGLOBIN 9.1 g/dL (12.0-18.0); BG VENT MODE VENT - SIMV
[2021-03-29 12:22] LABS: PLATELET ESTIMATE DECREASED
[2021-03-30] VITALS (31 sets, daily range): BP systolic 132–170; BP diastolic 77–118
[2021-03-30] MEDS: IPRATROPIUM/ALBUTEROL 0.5-3(2.5)MG/3ML NEB HHN SCH ×4 (01:18→20:28)
[2021-03-30 06:26] LABS: HEMATOCRIT. 25.8 % (42.0-52.0); HEMOGLOBIN. 8.4 g/dL (14.0-18.0); MEAN CORPUSCULAR HEMOGLOBIN 30.9 pg (28.0-32.0); MEAN CORPUSCULAR VOLUME 94.3 fL (80.0-94.0); MEAN PLATELET VOLUME 8.1 fl (7.4-10.4); PLATELET 112 x1000/uL (130-400); RED BLOOD CELL COUNT 2.73 mill/uL (4.7-6.1); RED CELL DISTRIBUTION WIDTH 15.7 % (11.6-14.6)
[2021-03-30 06:27] LABS: CHLORIDE 114 mEq/L (98-107)
[2021-03-30 06:49] LABS: PHOSPHORUS 4.2 mg/dL (2.5-4.9)
[2021-03-30] MEDS: PANTOPRAZOLE SODIUM 40 MG/VIAL IV SCH (08:52)
[2021-03-30] MEDS: THIAMINE HCL 100MG TABLET PO SCH (08:52)
[2021-03-30 08:57] LABS: BG BASE EXCESS -1.3 mmol/L (-2.0-2.0); BG CARBOXYHEMOGLOBIN 0.3 % (0.5-1.5); BG DEOXYHEMOGLOBIN 1.9 % (0.0-5.0); BG FRACTION INSPIRED OXYGEN 30; BG HCO3 ACT 22.8 mmol/L (22.0-26.0); BG METHEMOGLOBIN 0.3 % (0.0-1.5); BG OXYGEN SATURATION 98.1 % (92.0-98.5); BG OXYHEMOGLOBIN 97.5 % (94.0-97.0); BG PCO2 35.7 mmHg (35.0-45.0); BG PH 7.424 (7.350-7.450); BG PO2 108.7 mmHg (75.0-100.0); BG SAMPLE SITE RIGHT RADIAL; BG TOTAL HEMOGLOBIN 8.1 g/dL (12.0-18.0); BG TOTAL RESPIRATORY RATE 15 b/min; BG VENT MODE VENT - SIMV
[2021-03-30 10:41] LABS: PLATELET ESTIMATE SLIGHTLY DECREASED
[2021-03-30 13:27] LABS: BG BASE EXCESS -1.6 mmol/L (-2.0-2.0); BG CARBOXYHEMOGLOBIN 0.2 % (0.5-1.5); BG HCO3 ACT 22.2 mmol/L (22.0-26.0); BG METHEMOGLOBIN 0.3 % (0.0-1.5); BG OXYHEMOGLOBIN 97.5 % (94.0-97.0); BG PCO2 34.2 mmHg (35.0-45.0); BG PO2 119.1 mmHg (75.0-100.0); BG SAMPLE SITE RIGHT RADIAL; BG TOTAL HEMOGLOBIN 10.9 g/dL (12.0-18.0); BG VENT MODE VENT - CPAP
[2021-03-30] MEDS: CEFEPIME 2,000 MG in DEXT 5% WATER 100 ML IV SCH (16:23)
[2021-03-30] MEDS: HYDRALAZINE HCL 50MG TABLET NG SCH ×2 (16:23→21:01)
[2021-03-30] MEDS: LEVOFLOXACIN 500MG TABLET PO SCH (16:23)
[2021-03-30] MEDS: HYDRALAZINE 20MG/ML VIAL IV PRN (23:20)
[2021-03-31] VITALS (38 sets, daily range): BP systolic 123–162; BP diastolic 67–97
[2021-03-31] MEDS: IPRATROPIUM/ALBUTEROL 0.5-3(2.5)MG/3ML NEB HHN SCH ×4 (01:43→20:27)
[2021-03-31] MEDS: CEFEPIME 2,000 MG in DEXT 5% WATER 100 ML IV SCH ×2 (04:07→15:21)
[2021-03-31] MEDS: ACETAMINOPHEN 325MG TABLET PO PRN (04:20)
[2021-03-31] MEDS: HYDRALAZINE HCL 50MG TABLET NG SCH ×3 (05:30→22:30)
[2021-03-31 06:21] LABS: BASOPHILS % 0.4 % (0.0-2.0); EOSINOPHILS % 2.8 % (0.0-5.0); HEMATOCRIT. 24.2 % (42.0-52.0); LYMPHOCYTES % 10.5 % (20.0-50.0); MEAN CORPUSCULAR HEMOGLOBIN 31.3 pg (28.0-32.0); MEAN CORPUSCULAR VOLUME 95.3 fL (80.0-94.0); MEAN PLATELET VOLUME 7.9 fl (7.4-10.4); MONOCYTES % 3.8 % (2.0-8.0); NEUTROPHILS % 82.5 % (40.0-76.0); PLATELET 142 x1000/uL (130-400); RED BLOOD CELL COUNT 2.54 mill/uL (4.7-6.1); RED CELL DISTRIBUTION WIDTH 15.9 % (11.6-14.6)
[2021-03-31 06:25] LABS: CHLORIDE 113 mEq/L (98-107)
[2021-03-31] MEDS: PANTOPRAZOLE SODIUM 40 MG/VIAL IV SCH (10:04)
[2021-03-31] MEDS: THIAMINE HCL 100MG TABLET PO SCH (10:04)
[2021-03-31] MEDS: GUAIFENESIN 200MG/10ML SUGAR FREE UDC PO SCH ×2 (13:18→17:56)
[2021-03-31] MEDS: LEVOFLOXACIN 500MG TABLET PO SCH (15:21)
[2021-04-01] VITALS (11 sets, daily range): BP systolic 130–168; BP diastolic 78–104
[2021-04-01] MEDS: GUAIFENESIN 200MG/10ML SUGAR FREE UDC PO SCH ×5 (00:55→23:33)
[2021-04-01] MEDS: ACETAMINOPHEN 325MG TABLET PO PRN (00:55)
[2021-04-01] MEDS: IPRATROPIUM/ALBUTEROL 0.5-3(2.5)MG/3ML NEB HHN SCH ×4 (02:04→20:12)
[2021-04-01] MEDS: CEFEPIME 2,000 MG in DEXT 5% WATER 100 ML IV SCH ×2 (04:02→16:48)
[2021-04-01] MEDS: HYDRALAZINE HCL 50MG TABLET NG SCH ×3 (05:08→23:33)
[2021-04-01 06:46] LABS: BASOPHILS % 0.4 % (0.0-2.0); EOSINOPHILS % 2.2 % (0.0-5.0); HEMATOCRIT. 24.1 % (42.0-52.0); HEMOGLOBIN. 7.8 g/dL (14.0-18.0); LYMPHOCYTES % 9.9 % (20.0-50.0); MEAN CORPUSCULAR HEMOGLOBIN 31.1 pg (28.0-32.0); MEAN PLATELET VOLUME 8.1 fl (7.4-10.4); MONOCYTES % 5.7 % (2.0-8.0); NEUTROPHILS % 81.8 % (40.0-76.0); PLATELET 214 x1000/uL (130-400); RED BLOOD CELL COUNT 2.51 mill/uL (4.7-6.1); RED CELL DISTRIBUTION WIDTH 16.1 % (11.6-14.6)
[2021-04-01 07:04] LABS: CHLORIDE 114 mEq/L (98-107)
[2021-04-01 07:11] LABS: PHOSPHORUS 3.4 mg/dL (2.5-4.9)
[2021-04-01] MEDS: ENOXAPARIN 40MG/0.4ML SYR SUBCUT SCH ×2 (09:00→09:06)
[2021-04-01] MEDS: PANTOPRAZOLE SODIUM 40 MG/VIAL IV SCH (09:04)
[2021-04-01] MEDS: THIAMINE HCL 100MG TABLET PO SCH (09:04)
[2021-04-01] MEDS ORDERED: MAGNESIUM 1 G PREMIX 100 ML IV SCH (12:00)
[2021-04-01] MEDS: AMLODIPINE 10MG TABLET PO SCH (12:37)
[2021-04-01] MEDS: LEVOFLOXACIN 500MG TABLET PO SCH (14:57)
[2021-04-02] VITALS (12 sets, daily range): BP systolic 132–166; BP diastolic 73–100
[2021-04-02] MEDS: IPRATROPIUM/ALBUTEROL 0.5-3(2.5)MG/3ML NEB HHN SCH ×4 (02:00→21:15)
[2021-04-02] MEDS: GUAIFENESIN 200MG/10ML SUGAR FREE UDC PO SCH ×2 (05:18→11:46)
[2021-04-02] MEDS: HYDRALAZINE HCL 50MG TABLET NG SCH ×3 (05:18→21:21)
[2021-04-02] MEDS: CEFEPIME 2,000 MG in DEXT 5% WATER 100 ML IV SCH ×2 (05:18→17:46)
[2021-04-02 06:35] LABS: CHLORIDE 111 mEq/L (98-107)
[2021-04-02] MEDS: ACETAMINOPHEN 325MG TABLET PO PRN (06:37)
[2021-04-02 06:41] LABS: BASOPHILS % 0.5 % (0.0-2.0); EOSINOPHILS % 2.2 % (0.0-5.0); HEMATOCRIT. 24.3 % (42.0-52.0); HEMOGLOBIN. 7.9 g/dL (14.0-18.0); LYMPHOCYTES % 11.4 % (20.0-50.0); MEAN CORPUSCULAR HEMOGLOBIN 30.6 pg (28.0-32.0); MEAN CORPUSCULAR VOLUME 94.3 fL (80.0-94.0); MEAN PLATELET VOLUME 8.4 fl (7.4-10.4); MONOCYTES % 5.1 % (2.0-8.0); NEUTROPHILS % 80.8 % (40.0-76.0); PLATELET 333 x1000/uL (130-400); RED BLOOD CELL COUNT 2.57 mill/uL (4.7-6.1); RED CELL DISTRIBUTION WIDTH 16.1 % (11.6-14.6)
[2021-04-02 06:43] LABS: PHOSPHORUS 3.5 mg/dL (2.5-4.9)
[2021-04-02] MEDS: THIAMINE HCL 100MG TABLET PO SCH (08:13)
[2021-04-02] MEDS: AMLODIPINE 10MG TABLET PO SCH (08:13)
[2021-04-02] MEDS: PANTOPRAZOLE SODIUM 40 MG/VIAL IV SCH (08:13)
[2021-04-02] MEDS: ENOXAPARIN 40MG/0.4ML SYR SUBCUT SCH (08:15)
[2021-04-02] MEDS: HYDRALAZINE 20MG/ML VIAL IV PRN (10:00)
[2021-04-02] MEDS: ACETYLCYSTEINE 100MG/ML 10% VIAL 4ML INH SCH (11:20)
[2021-04-02] MEDS: LEVOFLOXACIN 500MG TABLET PO SCH (16:19)
[2021-04-03] VITALS (8 sets, daily range): BP systolic 134–153; BP diastolic 72–100
[2021-04-03] MEDS: IPRATROPIUM/ALBUTEROL 0.5-3(2.5)MG/3ML NEB HHN SCH ×4 (02:17→20:06)
[2021-04-03] MEDS: ACETYLCYSTEINE 100MG/ML 10% VIAL 4ML INH SCH ×3 (02:17→14:25)
[2021-04-03] MEDS: CEFEPIME 2,000 MG in DEXT 5% WATER 100 ML IV SCH ×2 (04:10→17:12)
[2021-04-03 06:11] LABS: BASOPHILS % 0.5 % (0.0-2.0); EOSINOPHILS % 2.6 % (0.0-5.0); HEMATOCRIT. 23.6 % (42.0-52.0); HEMOGLOBIN. 7.5 g/dL (14.0-18.0); LYMPHOCYTES % 9.2 % (20.0-50.0); MEAN CORPUSCULAR HEMOGLOBIN 30.1 pg (28.0-32.0); MEAN CORPUSCULAR VOLUME 94.7 fL (80.0-94.0); MEAN PLATELET VOLUME 8.4 fl (7.4-10.4); NEUTROPHILS % 80.7 % (40.0-76.0); PLATELET 368 x1000/uL (130-400); RED CELL DISTRIBUTION WIDTH 16.1 % (11.6-14.6)
[2021-04-03 06:14] LABS: CHLORIDE 109 mEq/L (98-107)
[2021-04-03 06:21] LABS: PHOSPHORUS 3.6 mg/dL (2.5-4.9)
[2021-04-03] MEDS: HYDRALAZINE HCL 50MG TABLET NG SCH (06:49)
[2021-04-03] MEDS: THIAMINE HCL 100MG TABLET PO SCH (08:55)
[2021-04-03] MEDS: AMLODIPINE 10MG TABLET PO SCH (08:55)
[2021-04-03] MEDS: PANTOPRAZOLE SODIUM 40 MG/VIAL IV SCH (08:56)
[2021-04-03] MEDS: ENOXAPARIN 40MG/0.4ML SYR SUBCUT SCH (08:56)
[2021-04-03] MEDS ORDERED: MAGNESIUM 2 G PREMIX 50 ML IV SCH (09:00)
[2021-04-03] MEDS: GUAIFENESIN 200MG/10ML SUGAR FREE UDC PO SCH ×3 (12:00→17:13)
[2021-04-03] MEDS: HYDRALAZINE HCL 100MG TABLET NG SCH ×2 (13:56→20:40)
[2021-04-03] MEDS: LEVOFLOXACIN 500MG TABLET PO SCH (17:11)
[2021-04-04] VITALS (10 sets, daily range): BP systolic 117–148; BP diastolic 60–87
[2021-04-04] MEDS: IPRATROPIUM/ALBUTEROL 0.5-3(2.5)MG/3ML NEB HHN SCH ×4 (00:17→18:53)
[2021-04-04] MEDS: ACETYLCYSTEINE 100MG/ML 10% VIAL 4ML INH SCH ×4 (00:18→22:39)
[2021-04-04] MEDS: GUAIFENESIN 200MG/10ML SUGAR FREE UDC PO SCH ×5 (00:46→23:28)
[2021-04-04] MEDS: CEFEPIME 2,000 MG in DEXT 5% WATER 100 ML IV SCH ×2 (04:10→16:15)
[2021-04-04] MEDS: HYDRALAZINE HCL 100MG TABLET NG SCH ×3 (06:50→21:29)
[2021-04-04 07:22] LABS: CHLORIDE 112 mEq/L (98-107)
[2021-04-04 07:29] LABS: PHOSPHORUS 3.7 mg/dL (2.5-4.9)
[2021-04-04] MEDS: PANTOPRAZOLE SODIUM 40 MG/VIAL IV SCH (09:30)
[2021-04-04] MEDS: ENOXAPARIN 40MG/0.4ML SYR SUBCUT SCH (09:31)
[2021-04-04] MEDS: ACETAMINOPHEN 325MG TABLET PO PRN (09:31)
[2021-04-04] MEDS: AMLODIPINE 10MG TABLET PO SCH (09:31)
[2021-04-04 10:02] LABS: BASOPHILS % 0.6 % (0.0-2.0); EOSINOPHILS % 2.4 % (0.0-5.0); LYMPHOCYTES % 10.3 % (20.0-50.0); MEAN CORPUSCULAR HEMOGLOBIN 31.3 pg (28.0-32.0); MEAN CORPUSCULAR VOLUME 93.7 fL (80.0-94.0); MEAN PLATELET VOLUME 8.4 fl (7.4-10.4); MONOCYTES % 5.9 % (2.0-8.0); NEUTROPHILS % 80.8 % (40.0-76.0); PLATELET 429 x1000/uL (130-400); RED BLOOD CELL COUNT 2.25 mill/uL (4.7-6.1); RED CELL DISTRIBUTION WIDTH 15.4 % (11.6-14.6)
[2021-04-04] MEDS: THIAMINE HCL 100MG TABLET PO SCH (10:04)
[2021-04-04] MEDS: LEVOFLOXACIN 500MG TABLET PO SCH (14:43)
[2021-04-04] MEDS: METRONIDAZOLE 500MG TABLET PO SCH (21:29)
[2021-04-04 23:49] LABS: HEMATOCRIT 24.6 % (42.0-52.0); HEMOGLOBIN 8.5 g/dL (14.0-18.0)
[2021-04-05] VITALS (9 sets, daily range): BP systolic 115–153; BP diastolic 64–91
[2021-04-05 00:07] LABS: INR 1.1
[2021-04-05] MEDS: IPRATROPIUM/ALBUTEROL 0.5-3(2.5)MG/3ML NEB HHN SCH ×4 (00:39→20:16)
[2021-04-05] MEDS: HYDRALAZINE HCL 100MG TABLET NG SCH ×3 (05:24→22:00)
[2021-04-05] MEDS: GUAIFENESIN 200MG/10ML SUGAR FREE UDC PO SCH ×3 (05:24→18:16)
[2021-04-05 05:51] LABS: BASOPHILS % 0.5 % (0.0-2.0); CHLORIDE 110 mEq/L (98-107); EOSINOPHILS % 5.2 % (0.0-5.0); HEMOGLOBIN. 8.4 g/dL (14.0-18.0); LYMPHOCYTES % 12.1 % (20.0-50.0); MEAN PLATELET VOLUME 8.1 fl (7.4-10.4); MONOCYTES % 6.9 % (2.0-8.0); NEUTROPHILS % 75.3 % (40.0-76.0); PLATELET 414 x1000/uL (130-400); RED BLOOD CELL COUNT 2.72 mill/uL (4.7-6.1); RED CELL DISTRIBUTION WIDTH 16.1 % (11.6-14.6)
[2021-04-05 06:12] LABS: PHOSPHORUS 3.7 mg/dL (2.5-4.9)
[2021-04-05 06:16] LABS: INR 1.1; PROTHROMBIN TIME 11.9 sec (9.6-11.0)
[2021-04-05] MEDS: ACETYLCYSTEINE 100MG/ML 10% VIAL 4ML INH SCH ×2 (08:28→16:36)
[2021-04-05] MEDS: THIAMINE HCL 100MG TABLET PO SCH (09:00)
[2021-04-05] MEDS: METRONIDAZOLE 500MG TABLET PO SCH ×3 (09:00→21:08)
[2021-04-05] MEDS: AMLODIPINE 10MG TABLET PO SCH ×2 (09:00→17:37)
[2021-04-05] MEDS ORDERED: CEFAZOLIN 1000MG PREMIX 50 ML IV NR (11:00)
[2021-04-05] MEDS ORDERED: PROPOFOL 200MG/20ML VIAL IV ONE (14:27)
[2021-04-05] MEDS: PANTOPRAZOLE SODIUM 40 MG/VIAL IV SCH (17:35)
[2021-04-05] MEDS: METOCLOPRAMIDE HCL 5MG TABLET PO SCH (17:36)
[2021-04-06] VITALS (7 sets, daily range): BP systolic 118–144; BP diastolic 66–85
[2021-04-06] MEDS: GUAIFENESIN 200MG/10ML SUGAR FREE UDC PO SCH ×4 (00:53→17:06)
[2021-04-06] MEDS: METOCLOPRAMIDE HCL 5MG TABLET PO SCH ×4 (00:53→17:06)
[2021-04-06] MEDS: IPRATROPIUM/ALBUTEROL 0.5-3(2.5)MG/3ML NEB HHN SCH ×4 (02:27→20:25)
[2021-04-06] MEDS: ACETYLCYSTEINE 100MG/ML 10% VIAL 4ML INH SCH ×3 (02:27→14:32)
[2021-04-06] MEDS: ACETAMINOPHEN 325MG TABLET PO PRN ×2 (06:05→11:39)
[2021-04-06] MEDS: HYDRALAZINE HCL 100MG TABLET NG SCH ×3 (06:05→21:54)
[2021-04-06 07:12] LABS: CHLORIDE 109 mEq/L (98-107)
[2021-04-06 07:18] LABS: PHOSPHORUS 3.1 mg/dL (2.5-4.9)
[2021-04-06 07:29] LABS: BASOPHILS % 0.7 % (0.0-2.0); HEMATOCRIT. 26.8 % (42.0-52.0); LYMPHOCYTES % 11.8 % (20.0-50.0); MEAN CORPUSCULAR HEMOGLOBIN 30.7 pg (28.0-32.0); MEAN CORPUSCULAR VOLUME 91.8 fL (80.0-94.0); MEAN PLATELET VOLUME 8.4 fl (7.4-10.4); MONOCYTES % 7.6 % (2.0-8.0); NEUTROPHILS % 76.9 % (40.0-76.0); PLATELET 456 x1000/uL (130-400); RED BLOOD CELL COUNT 2.92 mill/uL (4.7-6.1); RED CELL DISTRIBUTION WIDTH 15.8 % (11.6-14.6)
[2021-04-06] MEDS: THIAMINE HCL 100MG TABLET PO SCH (08:54)
[2021-04-06] MEDS: METRONIDAZOLE 500MG TABLET PO SCH ×2 (08:54→21:53)
[2021-04-06] MEDS: PANTOPRAZOLE SODIUM 40 MG/VIAL IV SCH (08:54)
[2021-04-06] MEDS: AMLODIPINE 10MG TABLET PO SCH (08:55)
[2021-04-06] MEDS ORDERED: MAGNESIUM 2 G PREMIX 50 ML IV NR ×2 (10:30→11:30)
[2021-04-07] VITALS (7 sets, daily range): BP systolic 136–166; BP diastolic 81–104
[2021-04-07] MEDS: GUAIFENESIN 200MG/10ML SUGAR FREE UDC PO SCH ×5 (00:41→23:23)
[2021-04-07] MEDS: METOCLOPRAMIDE HCL 5MG TABLET PO SCH ×5 (00:42→23:23)
[2021-04-07] MEDS: ACETYLCYSTEINE 100MG/ML 10% VIAL 4ML INH SCH ×3 (01:26→14:19)
[2021-04-07] MEDS: IPRATROPIUM/ALBUTEROL 0.5-3(2.5)MG/3ML NEB HHN SCH ×4 (01:27→20:08)
[2021-04-07] MEDS: HYDRALAZINE HCL 100MG TABLET NG SCH ×3 (06:24→21:08)
[2021-04-07 07:59] LABS: BASOPHILS % 0.8 % (0.0-2.0); EOSINOPHILS % 5.5 % (0.0-5.0); LYMPHOCYTES % 14.9 % (20.0-50.0); MEAN CORPUSCULAR HEMOGLOBIN 30.2 pg (28.0-32.0); MEAN CORPUSCULAR VOLUME 93.6 fL (80.0-94.0); MEAN PLATELET VOLUME 8.4 fl (7.4-10.4); MONOCYTES % 8.6 % (2.0-8.0); NEUTROPHILS % 70.2 % (40.0-76.0); PLATELET 467 x1000/uL (130-400); RED BLOOD CELL COUNT 2.99 mill/uL (4.7-6.1); RED CELL DISTRIBUTION WIDTH 15.9 % (11.6-14.6)
[2021-04-07] MEDS: PANTOPRAZOLE SODIUM 40 MG/VIAL IV SCH (08:32)
[2021-04-07] MEDS: METRONIDAZOLE 500MG TABLET PO SCH ×2 (08:33→21:07)
[2021-04-07] MEDS: THIAMINE HCL 100MG TABLET PO SCH (08:33)
[2021-04-07] MEDS: AMLODIPINE 10MG TABLET PO SCH (08:33)
[2021-04-07 08:48] LABS: CHLORIDE 109 mEq/L (98-107)
[2021-04-07 08:57] LABS: PHOSPHORUS 3.8 mg/dL (2.5-4.9)
[2021-04-08] MEDS: IPRATROPIUM/ALBUTEROL 0.5-3(2.5)MG/3ML NEB HHN SCH ×3 (00:50→21:42)
[2021-04-08 04:00] VITALS: BP 133/87
[2021-04-08] MEDS: HYDRALAZINE HCL 100MG TABLET NG SCH ×3 (05:24→21:15)
[2021-04-08] MEDS: GUAIFENESIN 200MG/10ML SUGAR FREE UDC PO SCH ×4 (05:24→23:49)
[2021-04-08 07:12] LABS: CHLORIDE 110 mEq/L (98-107)
[2021-04-08 07:19] LABS: PHOSPHORUS 2.9 mg/dL (2.5-4.9)
[2021-04-08 07:29] LABS: EOSINOPHILS % 6.2 % (0.0-5.0); HEMATOCRIT. 26.6 % (42.0-52.0); HEMOGLOBIN. 8.8 g/dL (14.0-18.0); LYMPHOCYTES % 18.1 % (20.0-50.0); MEAN CORPUSCULAR HEMOGLOBIN 30.4 pg (28.0-32.0); MEAN CORPUSCULAR VOLUME 92.1 fL (80.0-94.0); MEAN PLATELET VOLUME 8.3 fl (7.4-10.4); MONOCYTES % 7.5 % (2.0-8.0); NEUTROPHILS % 67.2 % (40.0-76.0); PLATELET 444 x1000/uL (130-400); RED BLOOD CELL COUNT 2.89 mill/uL (4.7-6.1); RED CELL DISTRIBUTION WIDTH 16.1 % (11.6-14.6)
[2021-04-08 08:00] VITALS: BP 135/81
[2021-04-08] MEDS: THIAMINE HCL 100MG TABLET PO SCH (10:19)
[2021-04-08] MEDS: METRONIDAZOLE 500MG TABLET PO SCH ×2 (10:19→21:15)
[2021-04-08] MEDS: PANTOPRAZOLE SODIUM 40 MG/VIAL IV SCH (10:19)
[2021-04-08] MEDS: AMLODIPINE 10MG TABLET PO SCH (10:20)
[2021-04-08 12:00] VITALS: BP 155/94
[2021-04-08 16:00] VITALS: BP 141/81
[2021-04-08 20:00] VITALS: BP 140/79
[2021-04-09] VITALS: BP 125/66
[2021-04-09] MEDS: ACETAMINOPHEN 325MG TABLET PO PRN (00:55)
[2021-04-09] MEDS: IPRATROPIUM/ALBUTEROL 0.5-3(2.5)MG/3ML NEB HHN SCH ×3 (01:06→20:48)
[2021-04-09 04:00] VITALS: BP 134/88
[2021-04-09] MEDS: GUAIFENESIN 200MG/10ML SUGAR FREE UDC PO SCH ×4 (05:23→23:31)
[2021-04-09] MEDS: HYDRALAZINE HCL 100MG TABLET NG SCH ×3 (05:30→21:31)
[2021-04-09 06:42] LABS: BASOPHILS % 1.1 % (0.0-2.0); HEMATOCRIT. 24.7 % (42.0-52.0); MEAN CORPUSCULAR HEMOGLOBIN 30.1 pg (28.0-32.0); MEAN CORPUSCULAR VOLUME 92.4 fL (80.0-94.0); MEAN PLATELET VOLUME 8.1 fl (7.4-10.4); MONOCYTES % 9.9 % (2.0-8.0); PLATELET 422 x1000/uL (130-400); RED BLOOD CELL COUNT 2.67 mill/uL (4.7-6.1); RED CELL DISTRIBUTION WIDTH 15.7 % (11.6-14.6)
[2021-04-09 08:00] VITALS: BP 121/75
[2021-04-09 08:05] LABS: CHLORIDE 109 mEq/L (98-107)
[2021-04-09 08:09] LABS: PHOSPHORUS 3.5 mg/dL (2.5-4.9)
[2021-04-09] MEDS: METRONIDAZOLE 500MG TABLET PO SCH ×2 (08:50→21:27)
[2021-04-09] MEDS: THIAMINE HCL 100MG TABLET PO SCH (08:51)
[2021-04-09] MEDS: AMLODIPINE 10MG TABLET PO SCH (08:51)
[2021-04-09] MEDS: PANTOPRAZOLE SODIUM 40 MG/VIAL IV SCH (08:53)
[2021-04-09] MEDS ORDERED: MAGNESIUM 2 G PREMIX 50 ML IV SCH (10:00)
[2021-04-09 12:00] VITALS: BP 115/73
[2021-04-09 16:00] VITALS: BP 119/68
[2021-04-09 20:00] VITALS: BP 133/80
[2021-04-10] VITALS: BP 135/75
[2021-04-10] MEDS: IPRATROPIUM/ALBUTEROL 0.5-3(2.5)MG/3ML NEB HHN SCH ×4 (01:31→20:59)
[2021-04-10 04:00] VITALS: BP 139/76
[2021-04-10] MEDS: GUAIFENESIN 200MG/10ML SUGAR FREE UDC PO SCH ×4 (05:04→23:26)
[2021-04-10] MEDS: HYDRALAZINE HCL 100MG TABLET NG SCH ×3 (05:05→23:27)
[2021-04-10 08:00] VITALS: BP 140/73
[2021-04-10] MEDS: THIAMINE HCL 100MG TABLET PO SCH (09:25)
[2021-04-10] MEDS: AMLODIPINE 10MG TABLET PO SCH (09:25)
[2021-04-10] MEDS: PANTOPRAZOLE SODIUM 40 MG/VIAL IV SCH (09:26)
[2021-04-10 09:43] LABS: BASOPHILS % 1.4 % (0.0-2.0); EOSINOPHILS % 5.3 % (0.0-5.0); HEMATOCRIT. 25.9 % (42.0-52.0); HEMOGLOBIN. 8.4 g/dL (14.0-18.0); LYMPHOCYTES % 19.5 % (20.0-50.0); MEAN PLATELET VOLUME 8.2 fl (7.4-10.4); MONOCYTES % 9.4 % (2.0-8.0); NEUTROPHILS % 64.4 % (40.0-76.0); PLATELET 407 x1000/uL (130-400); RED BLOOD CELL COUNT 2.82 mill/uL (4.7-6.1); RED CELL DISTRIBUTION WIDTH 15.8 % (11.6-14.6)
[2021-04-10] MEDS: ACETAMINOPHEN 325MG TABLET PO PRN (09:46)
[2021-04-10 09:51] LABS: CHLORIDE 110 mEq/L (98-107)
[2021-04-10 09:53] LABS: PHOSPHORUS 3.4 mg/dL (2.5-4.9)
[2021-04-10 12:00] VITALS: BP 126/75
[2021-04-10 16:00] VITALS: BP 132/81
[2021-04-10 20:00] VITALS: BP 135/81
[2021-04-11] VITALS (7 sets, daily range): BP systolic 121–142; BP diastolic 72–86
[2021-04-11] MEDS: IPRATROPIUM/ALBUTEROL 0.5-3(2.5)MG/3ML NEB HHN SCH ×4 (01:00→20:21)
[2021-04-11] MEDS: HYDRALAZINE HCL 100MG TABLET NG SCH ×3 (05:19→21:52)
[2021-04-11] MEDS: GUAIFENESIN 200MG/10ML SUGAR FREE UDC PO SCH ×3 (05:19→17:16)
[2021-04-11 06:44] LABS: BASOPHILS % 1.2 % (0.0-2.0); EOSINOPHILS % 5.6 % (0.0-5.0); HEMATOCRIT. 24.9 % (42.0-52.0); HEMOGLOBIN. 8.2 g/dL (14.0-18.0); LYMPHOCYTES % 22.3 % (20.0-50.0); MEAN CORPUSCULAR HEMOGLOBIN 30.1 pg (28.0-32.0); MEAN CORPUSCULAR VOLUME 91.3 fL (80.0-94.0); MEAN PLATELET VOLUME 8.2 fl (7.4-10.4); MONOCYTES % 9.7 % (2.0-8.0); NEUTROPHILS % 61.2 % (40.0-76.0); PLATELET 450 x1000/uL (130-400); RED BLOOD CELL COUNT 2.72 mill/uL (4.7-6.1); RED CELL DISTRIBUTION WIDTH 15.8 % (11.6-14.6)
[2021-04-11 06:54] LABS: CHLORIDE 110 mEq/L (98-107)
[2021-04-11 07:01] LABS: PHOSPHORUS 3.9 mg/dL (2.5-4.9)
[2021-04-11] MEDS: THIAMINE HCL 100MG TABLET PO SCH (09:00)
[2021-04-11] MEDS: PANTOPRAZOLE SODIUM 40 MG/VIAL IV SCH (09:00)
[2021-04-11] MEDS: AMLODIPINE 10MG TABLET PO SCH (09:00)
[2021-04-11] MEDS: ACETAMINOPHEN 325MG TABLET PO PRN ×2 (09:02→13:10)
[2021-04-11] MEDS ORDERED: MAGNESIUM 2 G PREMIX 50 ML IV NR (17:00)
[2021-04-12] VITALS: BP 130/77
[2021-04-12] MEDS: GUAIFENESIN 200MG/10ML SUGAR FREE UDC PO SCH ×3 (00:12→13:27)
[2021-04-12] MEDS: IPRATROPIUM/ALBUTEROL 0.5-3(2.5)MG/3ML NEB HHN SCH ×3 (01:52→14:27)
[2021-04-12 04:00] VITALS: BP 113/68
[2021-04-12] MEDS: HYDRALAZINE HCL 100MG TABLET NG SCH ×2 (06:14→13:28)
[2021-04-12 06:32] LABS: BASOPHILS % 0.9 % (0.0-2.0); EOSINOPHILS % 5.5 % (0.0-5.0); HEMATOCRIT. 25.7 % (42.0-52.0); HEMOGLOBIN. 8.4 g/dL (14.0-18.0); LYMPHOCYTES % 21.5 % (20.0-50.0); MEAN CORPUSCULAR VOLUME 91.6 fL (80.0-94.0); MEAN PLATELET VOLUME 8.4 fl (7.4-10.4); MONOCYTES % 8.6 % (2.0-8.0); NEUTROPHILS % 63.5 % (40.0-76.0); PLATELET 520 x1000/uL (130-400); RED BLOOD CELL COUNT 2.81 mill/uL (4.7-6.1)
[2021-04-12 06:42] LABS: CHLORIDE 108 mEq/L (98-107)
[2021-04-12 06:47] LABS: PHOSPHORUS 4.7 mg/dL (2.5-4.9)
[2021-04-12 08:00] VITALS: BP 147/93
[2021-04-12] MEDS: THIAMINE HCL 100MG TABLET PO SCH (09:33)
[2021-04-12] MEDS: AMLODIPINE 10MG TABLET PO SCH (09:33)
[2021-04-12] MEDS: PANTOPRAZOLE SODIUM 40 MG/VIAL IV SCH (09:33)
[2021-04-12 12:00] VITALS: BP 136/84
[2021-04-12 15:07] VITALS: BP 121/70
== END 2021-04-12 15:48 | DRG 870 ==
LOC: ER 16:47 → EDBEDREQTM 19:01 → EDBEDREQSVC 19:01 → EDBEDREQ 19:01 → EDBEDREQSVC 19:24 → EDBEDREQTM 19:24 → ENRESERV 19:43 → 6WST 21:52 → CVICU 03-23 08:38 → 5EST 04-01 00:36
PROVIDERS: ADMIT Internal Medicine; ATTEND Internal Medicine
PROC: 4A10X4Z Monitoring of Central Nervous Electrical Activity, External Approach (ICD-10-PCS; 2021-03-18)
PROC: 5A1955Z Respiratory Ventilation, Greater than 96 Consecutive Hours (ICD-10-PCS; principal; 2021-03-23)
PROC: 02HV33Z Insertion of Infusion Device into Superior Vena Cava, Percutaneous Approach (ICD-10-PCS; 2021-03-23)
PROC: B548ZZA Ultrasonography of Superior Vena Cava, Guidance (ICD-10-PCS; 2021-03-23)
PROC: 0BH17EZ Insertion of Endotracheal Airway into Trachea, Via Natural or Artificial Opening (ICD-10-PCS; 2021-03-23)
PROC: 30233N1 Transfusion of Nonautologous Red Blood Cells into Peripheral Vein, Percutaneous Approach (ICD-10-PCS; 2021-04-04)
PROC: 0DH63UZ Insertion of Feeding Device into Stomach, Percutaneous Approach (ICD-10-PCS; 2021-04-05)
PROC: 0DB78ZX Excision of Stomach, Pylorus, Via Natural or Artificial Opening Endoscopic, Diagnostic (ICD-10-PCS; 2021-04-05)
DX: A41.51 Sepsis due to Escherichia coli [E. coli] (principal); G92 Toxic encephalopathy; E43 Unspecified severe protein-calorie malnutrition; J69.0 Pneumonitis due to inhalation of food and vomit; J96.02 Acute respiratory failure with hypercapnia; J15.1 Pneumonia due to Pseudomonas; R65.21 Severe sepsis with septic shock; N17.0 Acute kidney failure with tubular necrosis; N39.0 Urinary tract infection, site not specified; F10.131 Alcohol abuse with withdrawal delirium; E87.2 Acidosis; E83.39 Other disorders of phosphorus metabolism; E83.42 Hypomagnesemia; E87.6 Hypokalemia; I10 Essential (primary) hypertension; R13.10 Dysphagia, unspecified; Y90.9 Presence of alcohol in blood, level not specified; K76.0 Fatty (change of) liver, not elsewhere classified; M50.90 Cervical disc disorder, unspecified, unspecified cervical region; M19.90 Unspecified osteoarthritis, unspecified site; Z20.822 Contact with and (suspected) exposure to COVID-19; F17.210 Nicotine dependence, cigarettes, uncomplicated; D53.9 Nutritional anemia, unspecified; A41.52 Sepsis due to Pseudomonas; D69.6 Thrombocytopenia, unspecified; K29.70 Gastritis, unspecified, without bleeding; M48.02 Spinal stenosis, cervical region; Z82.49 Family history of ischemic heart disease and other diseases of the circulatory system; Z68.21 Body mass index [BMI] 21.0-21.9, adult
CPT/HCPCS: 36415; 36600; 70551; 71045; 71275; 72141; 76700; 76770; 76937; 80048; 80053; 80202; 80305; 80320; 81003; 82140; 82375; 82550; 82607; 82805; 82962; 83615; 83735; 84100; 84145; 84439; 84443; 84484; 84550; 85014; 85018; 85025; 85049; 85384; 86592; 86850; 86900; 86920; 87070; 87077; 87186; 87426; 88304; 88312; 88313; 90732; 92610; 93005; 93306; 94003; 94640; 94667; 95816; 97162; 97164; 97530; 99291; A6261; C1725; C1893; C9113; J0360; J0690; J0692; J1650; J1940; J2060; J2405; J2543; J2704; J3370; J3411; J3475; J3480; J3490; J7030; J7040; J7042; J7060; J7070; J7608; J8597; P9016; Q9967; G0480